=== PATIENT | male | born 1990 | race Caucasian/White ===

== ENCOUNTER 2016-12-18 09:38 | Emergency (ER) | payer SELFPAY ==
[~2016-12-18] VITALS: Ht 188 cm; Wt 75.0 kg
[~2016-12-18 09:38] MED LIST: Z.0.NO CURRENT MEDS; ZITH250T PO
[2016-12-18 09:40] VITALS: BP 130/90; PULSE 110; RESP 18; TEMP 98.2; O2SAT 94
[2016-12-18 10:09] VITALS: BP 125/68; PULSE 106; RESP 16; O2SAT 98
[2016-12-18] MEDS ORDERED: SODIUM CHLOR 0.9% 1000 ML INJ 1,000 ML IV ONE (10:25)
[2016-12-18] MEDS ORDERED: SODIUM CHLORIDE 0.9% FLUSH 10 ML FLUSH IVF PRN (10:30)
[2016-12-18 10:41] VITALS: BP 125/68; PULSE 75; RESP 16; O2SAT 100
[2016-12-18 11:10] LABS: AUTOMATED NEUTROPHIL # 3.6 TH/MM3 (1.8-7.7); BASOPHIL % 0.4 % (0.0-2.0); EOSINOPHIL # 0.1 TH/MM3 (0-0.4); EOSINOPHIL % 2.2 % (0.0-4.0); HEMATOCRIT 45.2 % (39.0-51.0); HEMO FLAGS DIFF FINAL; LYMPH % 23.4 % (9.0-44.0); LYMPHOCYTE # 1.3 TH/MM3 (1.0-4.8); MEAN CELL VOLUME 88.2 FL (80.0-100.0); MEAN CORPUSCULAR HEMOGLOBIN 30.3 PG (27.0-34.0); MEAN CORPUSCULAR HGB CONC 34.3 % (32.0-36.0); PLATELET COUNT 194 TH/MM3 (150-450); RED BLOOD COUNT 5.13 MIL/MM3 (4.50-5.90); RED CELL DISTRIBUTION WIDTH 13.3 % (11.6-17.2); WHITE BLOOD COUNT 5.6 TH/MM3 (4.0-11.0)
[2016-12-18 11:19] LABS: APTT (PATIENT) 27.5 SEC (24.3-30.1); PROTHROMBIN TIME - PATIENT 11.4 SEC (9.8-11.6)
[2016-12-18 11:21] LABS: ANION GAP 9 MEQ/L (5-15); AST (GOT) 12 U/L (15-37); BICARBONATE 26.5 MEQ/L (21.0-32.0); BLOOD UREA NITROGEN 16 MG/DL (7-18); CHLORIDE 103 MEQ/L (98-107); GLOMERULAR FILTRATION RATE 81 ML/MIN (>89); MAGNESIUM 1.8 MG/DL (1.5-2.5); POTASSIUM 3.8 MEQ/L (3.5-5.1); SODIUM (NA) 138 MEQ/L (136-145)
[2016-12-18 11:22] LABS: ALT (GPT) 20 U/L (12-78)
[2016-12-18 11:24] LABS: BACTERIA, URINE RARE /hpf; BLOOD, URINE NEG (NEG); COMMENT (UR) CULT NOT INDICATED; CULTURE IF INDICATED CULT NOT INDICATED; GLUCOSE,URINE NEG (NEG); HYALINE CAST, URINE 30 /lpf (RARE); KETONE, URINE 10 mg/dL (NEG); MUCUS URINE MANY /lpf (OCC); NITRITE,URINE NEG (NEG); SQUAMOUS EPITHELIAL CELL URINE <1 /hpf (0-5); URINE COLOR YELLOW (YELLW/STRAW)
--- NOTE | 2016-12-18 11:26 | RADRPT ---
EXAM DATE/TIME: 12/18/2016 11:04 [facility] COMPARISON: CT BRAIN W/O CONTRAST, February 14, 2010, 12:53. INDICATIONS : Headache for 1 year, right side numbness for 1 hour RADIATION DOSE: 56.35 CTDIvol (mGy) MEDICAL HISTORY : None SURGICAL HISTORY : None. ENCOUNTER: Initial ACUITY: 1 yr PAIN SCALE: 4/10 LOCATION: cranial TECHNIQUE: Multiple contiguous axial images were obtained of the head. Using automated exposure control and adj ustment of the mA and/or kV according to patient size, radiation dose was kept as low as reasonably a chievable to obtain optimal diagnostic quality images. DICOM format image data is available electro nically for review and comparison. FINDINGS: CEREBRUM: The ventricles are normal for age. No evidence of midline shift, mass lesion, hemorrhage or acute in farction. No extra-axial fluid collections are seen. POSTERIOR FOSSA: The cerebellum and brainstem are intact. The 4th ventricle is midline. The cerebellopontine angle i s unremarkable. EXTRACRANIAL: The visualized portion of the orbits is intact. The coastal thickening is seen involving multiple shad ateral ethmoid air cells. Small air fluid level partially seen within the left maxillary sinus. Mucos al thickening seen within both frontal sinuses. SKULL: The calvaria is intact. No evidence of skull fracture. CONCLUSION: 1. No acute intracranial abnormality. 2. Chronic paranasal sinus disease. Buddy Vidal Jr., MD on December 18, 2016 at 11:23 Board Certified Radiologist. This report was verified electronically.
--- NOTE | 2016-12-18 11:29 | RADRPT ---
EXAM DATE/TIME: 12/18/2016 11:06 [facility] COMPARISON: No previous studies available for comparison. INDICATIONS : Right side numbness and tingling for 1 hour RADIATION DOSE: 32.96 CTDIvol (mGy) MEDICAL HISTORY : None SURGICAL HISTORY : None. ENCOUNTER: Initial ACUITY: 1 day PAIN SCALE: 0/10 LOCATION: neck TECHNIQUE: Volumetric scanning of the cervical spine was performed. Multiplanar reconstructions in the sagittal, coronal and oblique axial planes were performed. Using automated exposure control and adjustment o f the mA and/or kV according to patient size, radiation dose was kept as low as reasonably achievable to obtain optimal diagnostic quality images. DICOM format image data is available electronically f or review and comparison. FINDINGS: VERTEBRAE: Normal vertebral body height. ALIGNMENT: No evidence of subluxation. There is loss of the natural lordosis which may be positional in nature. C2-C3: The bony spinal canal is normal in size. No evidence of disc bulge or herniation. The neural forami na are bilaterally patent. C3-C4: The bony spinal canal is normal in size. No evidence of disc bulge or herniation. The neural forami na are bilaterally patent. C4-C5: The bony spinal canal is normal in size. No evidence of disc bulge or herniation. The neural forami na are bilaterally patent. C5-C6: The bony spinal canal is normal in size. No evidence of disc bulge or herniation. The neural forami na are bilaterally patent. C6-C7: The bony spinal canal is normal in size. No evidence of disc bulge or herniation. The neural forami na are bilaterally patent. C7-T1: The bony spinal canal is normal in size. No evidence of disc bulge or herniation. The neural forami na are bilaterally patent. CONCLUSION: 1. No acute abnormality. 2. Loss of the natural lordosis which may simply be positional in nature. Buddy Vidal Jr., MD on December 18, 2016 at 11:25 Board Certified Radiologist. This report was verified electronically.
[2016-12-18 11:31] LABS: ALKALINE PHOSPHATASE 63 U/L (45-117); TOTAL BILIRUBIN ADULT 1.1 MG/DL (0.2-1.0)
[2016-12-18 11:33] LABS: CREATINE KINASE 59 U/L (39-308)
[2016-12-18] MEDS ORDERED: KETOROLAC TROMETHAMINE 30 MG/ML (IVP) VIAL IV PUSH ONE (12:15)
[2016-12-18] MEDS ORDERED: diphenhydrAMINE HCL 50 MG/ML VIAL IV PUSH ONE (12:15)
[2016-12-18] MEDS ORDERED: PROCHLORPERAZINE INJ 10 MG/2 ML VIAL IV PUSH ONE (12:15)
[2016-12-18 12:50] VITALS: BP 128/73; PULSE 72; RESP 16; O2SAT 100
[2016-12-18] MEDS ORDERED: ACETAMIN 325 MG/BUTALBITAL 50 MG/CAFFEINE 40 MG TAB PO ONE (13:30)
[2016-12-18] MEDS ORDERED: BUTA1CAP PO (14:30)
--- NOTE | 2016-12-18 14:30 | PD ---
HPI Chief Complaint: Numbness/Tingling Time Seen by Provider: 10:15 Travel History International Travel<30 days: No Contact w/Intl Traveler<30days: No Traveled to known affect area: No History of Present Illness HPI Patient is a 25-year-old male with history of migraines, who comes in complaining of a tingling sensation that started in his right leg went up his leg and into his right arm and into his left arm. He says this happened this morning, and his friend reports that he was acting strange. Currently he only feels some paresthesias in his right arm around the blood pressure cuff. 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 He also says that his left eye hurts and his vision has been blurry, which she thinks is very likely due to a migraine as he has started to have a headache. He denies any trauma. He denies any neck pain. He denies any fever or chills. He denies any nausea or vomiting. [facility] Past Medical History Diminished Hearing: No Immunizations Current: Yes Social History Alcohol Use: Yes Tobacco Use: No Substance Use: No Allergies-Medications (Allergen,Severity, Reaction): Coded Allergies: No Known Allergies (Verified , 02/14/10) Reported Meds & Prescriptions Reported Meds & Active Scripts Active Zithromax Z-Ciro (Azithromycin) 250 Mg Tab 250 Mg PO DIRECTED 5 Days 500 MG (2 TABLETS) PO ON DAY 1, THEN 250 MG (1 TABLET) PO ON DAYS 2 TO 5. Reported No Current Meds (Miscellaneous Medication) [facility] [place] Review of Systems Except as stated in HPI: all other systems reviewed are Neg General / Constitutional: No: Fever, Chills Eyes: Positive: Blurred Vision HENT: Positive: Headaches, No: Lightheadedness Cardiovascular: No: Chest Pain or Discomfort Respiratory: No: Shortness of Breath Gastrointestinal: No: Nausea, Vomiting Genitourinary: No: Dysuria Musculoskeletal: No: Myalgias, Edema, Pain Neurologic: Positive: Paresthesia, No: Weakness, Dizziness Physical Exam Narrative GENERAL: Awake and alert, in no acute distress. SKIN: Focused skin assessment warm/dry. HEAD: Atraumatic. Normocephalic. EYES: Pupils equal and round and reactive. No scleral icterus. EOMI. ENT: Mucous membranes pink and moist. NECK: Trachea midline. No JVD. CARDIOVASCULAR: Regular rate and rhythm. No murmur appreciated. RESPIRATORY: No accessory muscle use. Clear to auscultation. Breath sounds equal bilaterally. GASTROINTESTINAL: Abdomen soft, non-tender, nondistended. MUSCULOSKELETAL: No obvious deformities. No clubbing. No cyanosis. No edema. NEUROLOGICAL: Awake and alert. No obvious cranial nerve deficits. Motor grossly within normal limits. Normal speech. Sensation within normal limits. PSYCHIATRIC: Appropriate mood and affect; insight and judgment normal. Data Data Last Documented VS Vital Signs Date Time Temp Pulse Resp B/P (MAP) Pulse Ox O2 Delivery O2 Flow Rate FiO2 12/18/16 12:50 72 16 128/73 (91) 100 Room Air 12/18/16 09:40 98.2 Orders Orders Electrocardiogram (12/18/16 10:25) Complete Blood Count With Diff (12/18/16 10:25) Comprehensive Metabolic Panel (12/18/16 10:25) Magnesium (Mg) (12/18/16 10:25) Ckmb (Isoenzyme) Profile (12/18/16 10:25) Troponin I (12/18/16 10:25) Act Partial Throm Time (Ptt) (12/18/16 10:25) Prothrombin Time / Inr (Pt) (12/18/16 10:25) Urinalysis - C+S If Indicated (12/18/16 10:25) Ct Brain W/O Iv Contrast(Rout) (12/18/16 10:25) Ct Cerv Spine W/O Contrast (12/18/16 10:25) Ecg Monitoring (12/18/16 10:25) Iv Access Insert/Monitor (12/18/16 10:25) Oximetry (12/18/16 10:25) Sodium Chloride 0.9% Flush (Ns Flush) (12/18/16 10:30) Sodium Chlor 0.9% 1000 Ml Inj (Ns 1000 M (12/18/16 10:25) Thyroid Stimulating Hormone (12/18/16 10:25) Drug Screen, Random Urine (12/18/16 10:25) Diphenhydramine Inj (Benadryl Inj) (12/18/16 12:15) Prochlorperazine Inj (Compazine Inj) (12/18/16 12:15) Ketorolac Inj (Toradol Inj) (12/18/16 12:15) Fclj-Xgmjy-Lwyx 325-50-40 Mg (Fioricet 3 (12/18/16 13:30) Labs Laboratory Tests Test 12/18/16 10:30 12/18/16 10:35 White Blood Count 5.6 TH/MM3 Red Blood Count 5.13 MIL/MM3 Hemoglobin 15.5 GM/DL Hematocrit 45.2 % Mean Corpuscular Volume 88.2 FL Mean Corpuscular Hemoglobin 30.3 PG Mean Corpuscular Hemoglobin Concent 34.3 % Red Cell Distribution Width 13.3 % Platelet Count 194 TH/MM3 Mean Platelet Volume 7.6 FL Neutrophils (%) (Auto) 65.0 % Lymphocytes (%) (Auto) 23.4 % Monocytes (%) (Auto) 9.0 % Eosinophils (%) (Auto) 2.2 % Basophils (%) (Auto) 0.4 % Neutrophils # (Auto) 3.6 TH/MM3 Lymphocytes # (Auto) 1.3 TH/MM3 Monocytes # (Auto) 0.5 TH/MM3 Eosinophils # (Auto) 0.1 TH/MM3 Basophils # (Auto) 0.0 TH/MM3 CBC Comment DIFF FINAL Differential Comment Prothrombin Time 11.4 SEC Prothromb Time International Ratio 1.0 RATIO Activated Partial Thromboplast Time 27.5 SEC Blood Urea Nitrogen 16 MG/DL Creatinine 1.12 MG/DL Random Glucose 111 MG/DL Total Protein 8.2 GM/DL Albumin 4.5 GM/DL Calcium Level 10.1 MG/DL Magnesium Level 1.8 MG/DL Alkaline Phosphatase 63 U/L Aspartate Amino Transf (AST/SGOT) 12 U/L Alanine Aminotransferase (ALT/SGPT) 20 U/L Total Bilirubin 1.1 MG/DL Sodium Level 138 MEQ/L Potassium Level 3.8 MEQ/L Chloride Level 103 MEQ/L Carbon Dioxide Level 26.5 MEQ/L Anion Gap 9 MEQ/L Estimat Glomerular Filtration Rate 81 ML/MIN Total Creatine Kinase 59 U/L Troponin I LESS THAN 0.02 NG/ML Thyroid Stimulating Hormone 3rd Gen 0.262 uIU/ML Urine Color YELLOW Urine Turbidity HAZY Urine pH 6.0 Urine Specific Gustine 1.036 Urine Protein 30 mg/dL Urine Glucose (UA) NEG mg/dL Urine Ketones 10 mg/dL Urine Occult Blood NEG Urine Nitrite NEG Urine Bilirubin NEG Urine Urobilinogen 2.0 MG/DL Urine Leukocyte Esterase NEG Urine RBC LESS THAN 1 /hpf Urine WBC 4 /hpf Urine Squamous Epithelial Cells <1 /hpf Urine Bacteria RARE /hpf Urine Hyaline Casts 30 /lpf Urine Mucus MANY /lpf Microscopic Urinalysis Comment CULT NOT INDICATED Urine Opiates Screen NEG Urine Barbiturates Screen NEG Urine Amphetamines Screen NEG Urine Benzodiazepines Screen NEG Urine Cocaine Screen NEG Urine Cannabinoids Screen POS MDM Medical Decision Making Medical Screen Exam Complete: Yes Emergency Medical Condition: Yes Medical Record Reviewed: Yes Interpretation(s) ECG shows NSR at 69, early repolarization Differential Diagnosis Migraine vs radiculopathy vs electrolyte abnormality Narrative Course Patient is a 26-year-old male who comes in complaining of paresthesias that went from his right leg to his left arm. Currently he is asymptomatic, neurologic exam is within normal limits. CT head and C-spine performed show no acute abnormalities. Labs show no acute abnormalities other than TSH is a little bit low. Patient is informed of this result and told to follow-up with a primary care doctor. He does complain of a headache, and now he says that he thinks his symptoms are likely related to a migraine. Patient given migraine cocktail, IV fluids, Compazine, Benadryl, Toradol. He says it helped a little, but he still has pain. Given a Fioricet. He'll be discharged with prescription for Fioricet. Advised follow-up with primary care. Advised to return to the ED as needed for any worsening symptoms. Diagnosis Primary Impression: Headache Qualified Codes: R51 - Headache Additional Impression: Leg paresthesia Patient Instructions: Acute Headache (ED), General Instructions Additional Instructions: Follow-up with a primary care doctor. Your labs suggest you might be slightly hyperthyroid, but this should be further worked up at a primary care physician. Take Fioricet as needed for severe headache. Otherwise take Tylenol or ibuprofen. Drink plenty of fluids. Return to the ED as needed for any worsening symptoms. Scripts Aiqnwofzft-Ybjlljvvkzjpg-Cmndjcfx (Fioricet) 50-300-40 Mg Cap 1 CAP PO Q4H Y for HEADACHE, #10 CAP 0 Refills Prov: Breana Gar MD 12/18/16 Disposition: 01 DISCHARGE HOME Condition: Stable Breana Gar MD Dec 18, 2016 14:30
[2016-12-18 14:33] VITALS: BP 132/68
--- NOTE | 2016-12-18 14:55 | EKG ---
Date Performed: 12/18/2016 Time Performed: 10:49:56 PTAGE: 26 years EKG: Sinus rhythm EARLY REPOLARIZATION BORDERLINE ECG NO PREVIOUS TRACING DOCTOR: Truong Banks Interpretating Date/Time 12/18/2016 14:54:08
== END 2016-12-18 14:47 | disposition home or self-care (01) ==
LOC: NEPD 09:38
DX: R51 Headache (principal); R20.2 Paresthesia of skin; G43.909 Migraine, unspecified, not intractable, without status migrainosus
CPT/HCPCS: 70450; 72125; 80053; 80307; 81001; 82550; 83735; 84443; 84484; 85025; 85610; 85730; 93005; 96374; 96375; 99285; J0780; J1200; J1885; J7030

== ENCOUNTER 2016-12-30 08:05 | Emergency (ER) | payer SELFPAY ==
[~2016-12-30 08:05] MED LIST changes: +BUTA1CAP PO
[2016-12-30 08:06] VITALS: BP 138/94; PULSE 83; RESP 16; TEMP 98; O2SAT 99
[2016-12-30] MEDS ORDERED: SODIUM CHLOR 0.9% 1000 ML INJ 1,000 ML IV ONE ×2 (09:44→10:14)
[2016-12-30] MEDS ORDERED: SODIUM CHLORIDE 0.9% FLUSH 10 ML FLUSH IVF PRN (09:45)
[2016-12-30 10:42] LABS: AUTOMATED NEUTROPHIL # 4.5 TH/MM3 (1.8-7.7); BASOPHIL % 0.6 % (0.0-2.0); EOSINOPHIL # 0.2 TH/MM3 (0-0.4); EOSINOPHIL % 2.5 % (0.0-4.0); HEMATOCRIT 43.7 % (39.0-51.0); HEMO FLAGS DIFF FINAL; LYMPH % 21.2 % (9.0-44.0); LYMPHOCYTE # 1.4 TH/MM3 (1.0-4.8); MEAN CELL VOLUME 87.5 FL (80.0-100.0); MEAN CORPUSCULAR HEMOGLOBIN 30.1 PG (27.0-34.0); MEAN CORPUSCULAR HGB CONC 34.4 % (32.0-36.0); MONO % 8.8 % (0.0-8.0); NEUT % 66.9 % (16.0-70.0); PLATELET COUNT 232 TH/MM3 (150-450); RED BLOOD COUNT 4.99 MIL/MM3 (4.50-5.90); RED CELL DISTRIBUTION WIDTH 13.7 % (11.6-17.2); WHITE BLOOD COUNT 6.8 TH/MM3 (4.0-11.0)
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
[2016-12-30 11:38] LABS: ALKALINE PHOSPHATASE 65 U/L (45-117); ALT (GPT) 23 U/L (12-78); ANION GAP 6 MEQ/L (5-15); AST (GOT) 11 U/L (15-37); BETA-HYDROXYBUTYRATE 0.13 MMOL/L (0.00-0.39); BICARBONATE 29.2 MEQ/L (21.0-32.0); BLOOD UREA NITROGEN 12 MG/DL (7-18); CHLORIDE 104 MEQ/L (98-107); GLOMERULAR FILTRATION RATE 108 ML/MIN (>89); SODIUM (NA) 139 MEQ/L (136-145); TOTAL BILIRUBIN ADULT 1.2 MG/DL (0.2-1.0)
== END 2016-12-30 16:29 | disposition home or self-care (01) ==
LOC: NEPD 08:05
DX: R20.2 Paresthesia of skin (principal); G51.0 Bell's palsy; F12.10 Cannabis abuse, uncomplicated; R35.8 Other polyuria; R63.1 Polydipsia
CPT/HCPCS: 80053; 82010; 83735; 85025; 85652; 96360; 96361; 99284; J7030

== ENCOUNTER 2017-06-24 00:50 | Emergency (ER) | payer OTHER ==
[~2017-06-24] VITALS: Ht 188 cm; Wt 76.8 kg
[2017-06-24 00:57] VITALS: BP 132/71; PULSE 64; RESP 16; TEMP 97.9; O2SAT 98
--- NOTE | 2017-06-24 01:34 | PD ---
HPI Chief Complaint: ENT Complaint Time Seen by Provider: 01:25 Travel History International Travel<30 days: No Contact w/Intl Traveler<30days: No Traveled to known affect area: No History of Present Illness HPI The patient is a 27-year-old male that complains of left ear pain for over a year. He says he had it checked out before and they could not find anything. He states he does have some wisdom teeth that may be infected and he was put on amoxicillin, he is just not started it yet. He also complains of some left throat pain which is only a sensation there, not a lump and not a foreign body sensation, just a slight discomfort. He denies any fever, nausea, vomiting or diarrhea. He denies any vertigo, tinnitus or hearing loss. PFSH Past Medical History Diminished Hearing: No Medical other: Yes (Ramirez's palsy) Immunizations Current: Yes Tetanus Vaccination: > 5 Years Influenza Vaccination: No Past Surgical History Surgical History: No Previous Surgery Social History Alcohol Use: Yes (OCC) Tobacco Use: No Substance Use: Yes (OCC POT) Allergies-Medications (Allergen,Severity, Reaction): Coded Allergies: No Known Allergies (Verified , 12/30/16) Reported Meds & Prescriptions Reported Meds & Active Scripts Active No Active Prescriptions or Reported Medications Review of Systems Except as stated in HPI: all other systems reviewed are Neg Physical Exam Narrative GENERAL: Well-nourished, well-developed patient in minimal apparent distress with his left ear pain and throat discomfort. His vital signs show normal. SKIN: Focused skin assessment warm/dry. No skin rashes present. HEAD: Normocephalic. EYES: No scleral icterus. No injection or drainage. NECK: Supple, trachea midline. No JVD or lymphadenopathy. CARDIOVASCULAR: Regular rate and rhythm without murmurs, gallops, or rubs. RESPIRATORY: Breath sounds equal bilaterally. No accessory muscle use. GASTROINTESTINAL: Abdomen soft, non-tender, nondistended. MUSCULOSKELETAL: No cyanosis, or edema. BACK: Nontender without obvious deformity. No CVA tenderness. ENT: The tympanic membranes are clear and the throat is clear. Laryngoscopy shows no lesions or foreign body. There is no TMJ tenderness present. Dental: No obvious drainable abscesses are seen and there is no tooth tenderness present. He does have gingivitis. Data Data Last Documented VS Vital Signs Date Time Temp Pulse Resp B/P (MAP) Pulse Ox O2 Delivery O2 Flow Rate FiO2 06/24/17 00:57 97.9 64 16 132/71 (91) 98 MDM Medical Decision Making Medical Screen Exam Complete: Yes Emergency Medical Condition: Yes Medical Record Reviewed: Yes Differential Diagnosis Foreign body throat, pharyngitis, dental pain, TMJ pain Narrative Course The patient does not have TMJ pain, he may have dental pain. The throat exam was completely normal as is the ear exam. His left ear pain has been going on for over a year. Again, this may originate in the dental area. Plan: The patient should take the amoxicillin prescription that he was prescribed. This may take care of the dental pain and possibly the throat and ear pain as well. He needs to follow-up with a primary care physician. Diagnosis Primary Impression: Chronic left ear pain Additional Impression: Throat pain in adult Additional Instructions: Follow-up with a primary care physician. Take your antibiotic as it was prescribed. Your primary care physician may have to refer you to an dissolver operator if this pain is persistent. Also, completion of the dental work may also relieve this pain. Scripts No Active Prescriptions or Reported Meds Disposition: 01 DISCHARGE HOME Condition: Stable Kali Gordon MD Jun 24, 2017 01:34
== END 2017-06-24 01:47 | disposition home or self-care (01) ==
LOC: PHED 00:50
DX: H92.02 Otalgia, left ear (principal); G89.29 Other chronic pain; R07.0 Pain in throat
CPT/HCPCS: 99282